=== PATIENT | female | born 1940 | race Caucasian/White ===

== ENCOUNTER 2018-04-26 09:26 | Outpatient (CLI) | END 2018-04-26 09:27 | disposition home or self-care (01) | LOC: LAB 09:26 | PROVIDERS: ATTEND Family Medicine | DX: N18.4 Chronic kidney disease, stage 4 (severe) (principal); D63.1 Anemia in chronic kidney disease; R53.1 Weakness | CPT/HCPCS: 36415; 83540; 85027; 86850; 86880; 86900; 86922 ==

== ENCOUNTER 2018-04-28 09:39 | Outpatient (CLI) ==
[2018-04-28 14:20] VITALS: TEMP 97.6
[2018-04-28 14:21] VITALS: BP 122/64
== END 2018-04-28 09:40 | disposition home or self-care (01) ==
LOC: OPMED 09:39
PROVIDERS: ATTEND Family Medicine
DX: N18.4 Chronic kidney disease, stage 4 (severe) (principal); D63.1 Anemia in chronic kidney disease; R53.1 Weakness
CPT/HCPCS: 36415; 36430; 83540; 85014; 85018; 85027; 86850; 86880; 86900; 86922